=== PATIENT | female | born 2000 | race Caucasian/White ===

== ENCOUNTER 2022-01-18 07:50 | Day surgery (SDC) | payer BC ==
[2022-01-16 12:12] VITALS: BMI 23.8
[2022-01-18 08:52] LABS: BHCG - Serum Negative (NEGATIVE); Pregs Control Background? CLEAR/WHITE (CLR/WHITE); Pregs Control Bar Appear? YES (CONTROL BAR)
[2022-01-18] MEDS ORDERED: fentaNYL Citrate/PF 100 MCG/2 ML SYRINGE ONE (09:31)
[2022-01-18] MEDS ORDERED: Midazolam HCl 2 mg/2 ml Vial ONE (09:31)
[2022-01-18] MEDS ORDERED: Lidocaine 1% PF 5 ML VIAL ONE (09:51)
[2022-01-18] MEDS ORDERED: Dexamethasone 20 MG/5 ML VIAL ONE (09:51)
[2022-01-18] MEDS ORDERED: Succinylcholine 200 MG/10 ml SYRINGE FS ONE (09:51)
[2022-01-18] MEDS ORDERED: Ondansetron PF 4 MG/2 ML Vial ONE (09:51)
[2022-01-18] MEDS ORDERED: Rocuronium Bromide 10 MG/ML (10ML VIAL) ONE (09:51)
[2022-01-18] MEDS ORDERED: PROPOFOL 200 MG/20 ML VIAL ONE (09:51)
[2022-01-18] MEDS ORDERED: Fentanyl 100 MCG/2 ML VIAL ONE ×2 (10:39→11:38)
[2022-01-18] MEDS ORDERED: Hydrocodone-Acetamin 15 ML UDCUP ONE (13:43)
== END 2022-01-18 14:03 | disposition home or self-care (01) ==
LOC: SDC 07:50
PROVIDERS: ATTEND Specialist
PROC: 0CTPXZZ Resection of Tonsils, External Approach (ICD-10-PCS; principal; 2022-01-18)
DX: J35.01 Chronic tonsillitis (principal); J02.0 Streptococcal pharyngitis; Z79.899 Other long term (current) drug therapy
CPT/HCPCS: 84703; 85014; 88304; J1100; J2250; J2405; J2704; J3010